=== PATIENT | male | born 1950 | race Caucasian/White ===

== ENCOUNTER → 2017-11-21 | Outpatient (CLI) | payer MEDICARE, OTHER ==
[~2017-11-21] MED LIST: ACET325 PO; ALEVE220 MG PO; AMIT50 PO; ASPI81CH PO; Aldactone50 MG PO; CARV25 PO; ENTRESTO 24 MG1 EACH PO; FURO20 PO; GABA300 PO; LOSA25 PO; LOSA50 PO; METF500 PO; NAPR220 PO; SIMV40; SIMV40 PO
== END | disposition home or self-care (01) ==
LOC: PLD 11:48 → LAB SHORT 11:48
DX: D22.5 Melanocytic nevi of trunk (principal)
CPT/HCPCS: 88305